=== PATIENT | female | born 1995 | race Caucasian/White ===

== ENCOUNTER 2022-06-01 00:33 | Emergency (ER) | payer OTHER ==
[2022-06-01 00:53] VITALS: TEMP 97
[2022-06-01] MEDS ORDERED: SODIUM CHLORIDE 0.9% 1,000 ML IV ONE (01:14)
[2022-06-01 01:46] LABS: Basophils # (A) 0.1 k/uL (0-0.2); Basophils % (A) 1 %; Eosinophils # (A) 0.3 k/uL (0-0.7); Eosinophils % (A) 5 %; HCT 38.2 % (34.0-46.0); HGB 12.7 gm/dL (11.4-16.0); Lymphocytes # (A) 2.1 k/uL (1.0-4.8); Lymphocytes % (A) 33 %; MCH 30.4 pg (25.0-35.0); MCHC 33.2 g/dL (31.0-37.0); MCV 91.6 fL (80.0-100.0); Mean Platelet Volume 7.8; Monocytes # (A) 0.4 k/uL (0-1.0); Monocytes % (A) 6 %; Neutrophils # (A) 3.4 k/uL (1.3-7.7); Neutrophils % (A) 54 %; Platelet Count 316 k/uL (150-450); RBC 4.17 m/uL (3.80-5.40); RDW 12.6 % (11.5-15.5); WBC 6.3 k/uL (3.8-10.6)
[2022-06-01 01:53] LABS: INR 1.2 (<1.2); Partial Thromboplastin Time 27.2 sec (22.0-30.0); Prothrombin Time 12.7 sec (9.0-12.0)
[2022-06-01 02:07] LABS: ALT 17 U/L (4-34); African American GFR (CKD) >90 (>60 ml/min/1.73 sqM); Alcohol <10 mg/dL; Anion Gap 13 mmol/L; Blood Urea Nitrogen 14 mg/dL (7-17); Calcium 9.6 mg/dL (8.4-10.2); Carbon Dioxide 25 mmol/L (22-30); Chloride 99 mmol/L (98-107); Glucose 84 mg/dL (74-99); Non-African American GFR(CKD) 88 (>60 ml/min/1.73 sqM); Sodium 137 mmol/L (137-145)
[2022-06-01 02:21] LABS: Albumin 5.1 g/dL (3.5-5.0); Potassium 4.6 mmol/L (3.5-5.1); Total Protein 7.9 g/dL (6.3-8.2)
[2022-06-01 02:22] LABS: AST 38 U/L (14-36); Alkaline Phosphatase 42 U/L (38-126)
--- NOTE | 2022-06-01 02:31 | CT ---
EXAMINATION TYPE: CT brain wo con DATE OF EXAM: 06/01/2022 COMPARISON: None HISTORY: AMS CT DLP: 1799.4 mGycm Automated exposure control for dose reduction was used. Ventricles have normal size. There is no mass effect or midline shift. No sign of intracranial hemorr tameka. The calvarium is intact. Skull base is intact. There is normal aeration of the mastoid sinuses. IMPRESSION: Negative unenhanced head CT scan
[2022-06-01] MEDS ORDERED: SODIUM CHLORIDE 0.9% 1,000 ML IV STA (03:03)
[2022-06-01 03:50] LABS: Appearance,Urine Cloudy (Clear); Bacteria,Urine Rare /hpf; Bilirubin,Urine Negative (Negative); Blood,Urine Negative (Negative); Color,Urine Yellow; Glucose,Urine (UA) Negative (Negative); Ketones,Urine 1+ (Negative); Leukocyte Esterase,Urine Large (Negative); Mucus,Urine Occasional /hpf; Nitrite,Urine Negative (Negative); PH, Urine 5.5 (5.0-8.0); Protein,Urine Trace (Negative); Specific Gravity,Urine 1.025 (1.001-1.035); Squamous Epithelial Cell,Urine 6 /hpf (0-4); Urobilinogen,Urine <2.0 mg/dL (<2.0); WBC,Urine 63 /hpf (0-5)
[2022-06-01] MEDS ORDERED: cefTRIAXone IN SWFI 1,000 MG/10 ML SYRINGE IVP ONE (04:00)
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
[2022-06-01 04:09] LABS: Amphetamine Screen,Urine Detected (NotDetected); Barbiturate Screen,Urine Not Detected (NotDetected); Benzodiazepines Screen,Urine Detected (NotDetected); Cocaine Screen,Urine Not Detected (NotDetected); Methadone Screen, Urine Not Detected (NotDetected); Opiate Screen,Urine Detected (NotDetected); Oxycodone Screen, Urine Not Detected (NotDetected); Phencyclidine Screen,Urine Not Detected (NotDetected); Tricyclic Antidepressant,Urine Not Detected (NotDetected); Urn Cannabinoid Scrn Detected (NotDetected)
[2022-06-01] MEDS ORDERED: NALOXONE 0.4 MG/ML 1 ML VIAL IVP STA ×2 (04:24→04:31)
[2022-06-01 11:57] VITALS: BP 106/85; PULSE 89; RESP 18
== END 2022-06-01 12:00 | disposition home or self-care (01) ==
LOC: EC 00:33
DX: R41.82 Altered mental status, unspecified (principal); N39.0 Urinary tract infection, site not specified; F11.10 Opioid abuse, uncomplicated; F12.10 Cannabis abuse, uncomplicated; F13.10 Sedative, hypnotic or anxiolytic abuse, uncomplicated; F15.10 Other stimulant abuse, uncomplicated; F17.200 Nicotine dependence, unspecified, uncomplicated; F90.9 Attention-deficit hyperactivity disorder, unspecified type
CPT/HCPCS: 36415; 93005; 80053; 84484; 85025; 85610; 85730; 81001; 81025; 80306; 70450; 99285; 96374; 96375; 96361; G0480; J2310; J0696; 80320